=== PATIENT | female | born 1950 | race Caucasian/White ===

== ENCOUNTER 2017-08-25 01:05 | Outpatient (CLI) | payer MEDICARE | END 2017-08-25 01:06 | disposition critical access hospital (66) | LOC: EMS 01:05 | PROVIDERS: ATTEND Surgery | DX: R07.9 Chest pain, unspecified (principal); M54.9 Dorsalgia, unspecified | CPT/HCPCS: A0425; A0433 ==

== ENCOUNTER 2017-08-25 01:33 | Emergency (ER) | payer MEDICARE ==
[2017-08-25] MEDS: SODIUM CHLORIDE 0.9% 1,000 ML IV ONE (01:53)
--- NOTE | 2017-08-25 01:56 | ED Physician Documentation ---
PD HPI CHEST PAIN - Stated complaint Stated Complaint: CHEST PAIN/SOA - Chief complaint Chief Complaint: Cardiac - History obtained from History obtained from: Patient, EMS - History of Present Illness Timing - onset: Enter time (16:00), Today ((08/24/17)) Timing - onset during: Rest Timing - duration: Hours Timing - details: Gradual onset, Still present, Waxing and waning Pain level max: 10 Pain level now: 10 Quality: Pain Location: Other (back pain (denies CP and denies abdominal pain on my HPI)) Radiation: Other (no radiation) Improved by: Other (no ameliorating factors) Worsened by: Other (no exacerbating factors) Associated symptoms: Diaphoresis, Nausea, Vomiting. No: Shortness of air, General Weakness, Palpitations Similar symptoms before: Has not had sx before Recently seen: Not recently seen - Additional information Additional information: en route, EMS administered following without any improvement in symptoms: SLNTG x 2, IV morphine 5mg, IV zofran 4 mg, and fentanyl 150micrograms IV Review of Systems Constitutional: reports: Sweats. denies: Fever, Chills Eyes: reports: Reviewed and negative Ears: reports: Reviewed and negative Nose: reports: Reviewed and negative Throat: reports: Reviewed and negative Cardiac: reports: Reviewed and negative Respiratory: reports: Reviewed and negative GI: reports: Nausea, Vomiting. denies: Abdominal Pain, Constipation, Diarrhea : denies: Dysuria, Frequency, Hematuria Skin: reports: Reviewed and negative Musculoskeletal: reports: Back pain. denies: Neck pain Neurologic: reports: Reviewed and negative PD PAST MEDICAL HISTORY - Past Medical History Past Medical History: Yes Cardiovascular: Hypertension Musculoskeletal: Osteoarthritis - Past Surgical History Past Surgical History: Yes General: Cholecystectomy - Present Medications Home Medications: Ambulatory Orders Medication Instructions Recorded Confirmed Atenolol 50 mg PO DAILY 08/25/17 08/25/17 hydroCHLOROthiazide 1 tab PO DAILY 08/25/17 08/25/17 [Hydrochlorothiazide] - Allergies Allergies/Adverse Reactions: Allergies Allergy/AdvReac Type Severity Reaction Status Date / Time No Known Drug Allergies Allergy Verified 08/25/17 01:52 - Social History Does the pt smoke?: No Smoking Status: Never smoker Does the pt drink ETOH?: Yes Does the pt have substance abuse?: No - Immunizations Immunizations are current?: Yes - POLST Patient has POLST: No PD ED PE NORMAL - Vitals Vital signs reviewed: Yes - General General: Alert and oriented X 3, Well developed/nourished, Other (obvious painful distress, diaphoretic) - HEENT HEENT: PERRL, EOMI, Moist mucous membranes - Neck Neck: Supple, no meningeal sign - Cardiac Cardiac: RRR, No murmur, No gallop, No rub - Respiratory Respiratory: No respiratory distress, Clear bilaterally - Abdomen Abdomen: Soft, Non tender, Non distended - Back Back: No CVA TTP, No spinal TTP - Derm Derm: Normal color, Other (diaphoretic) - Extremities Extremities: No edema - Neuro Neuro: Alert and oriented X 3, 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, No motor deficit, No sensory deficit Eye Opening: Spontaneous Motor: Obeys Commands Verbal: Oriented GCS Score: 15 Results - Vitals Vitals: Vital Signs - 24 hr 08/25/17 08/25/17 08/25/17 01:35 02:41 03:15 Temperature 35.9 C L Heart Rate 77 85 84 Respiratory 19 21 16 Rate Blood Pressure 162/99 H 179/101 H 212/115 H Blood Pressure 141/101 H [Left] Blood Pressure 162/99 H [Right] O2 Saturation 95 94 96 08/25/17 08/25/17 08/25/17 03:48 04:10 04:31 Temperature 35.9 C L 361 C H Heart Rate 88 87 88 Respiratory 18 15 20 Rate Blood Pressure 190/115 H 195/113 H 185/86 H Blood Pressure [Left] Blood Pressure [Right] O2 Saturation 96 94 94 08/25/17 08/25/17 08/25/17 05:00 05:03 05:31 Temperature Heart Rate 78 100 Respiratory 16 23 Rate Blood Pressure 173/95 H 176/111 H Blood Pressure [Left] Blood Pressure [Right] O2 Saturation 88 L 94 97 08/25/17 08/25/17 08/25/17 06:23 07:30 08:01 Temperature 36.6 C Heart Rate 103 H 90 98 Respiratory 19 21 22 Rate Blood Pressure 186/99 H 157/116 H 145/99 H Blood Pressure [Left] Blood Pressure [Right] O2 Saturation 97 94 08/25/17 08/25/17 08/25/17 08:30 09:00 09:32 Temperature 37 C Heart Rate 95 93 Respiratory 20 18 Rate Blood Pressure 171/91 H 139/78 H Blood Pressure [Left] Blood Pressure [Right] O2 Saturation 94 95 08/25/17 08/25/17 08/25/17 09:57 10:17 10:38 Temperature Heart Rate 89 98 98 Respiratory 16 20 18 Rate Blood Pressure 148/86 H 135/87 H 135/87 H Blood Pressure [Left] Blood Pressure [Right] O2 Saturation 96 83 L 90 L Oxygen O2 Source Nasal cannula Oxygen Flow Rate 3 - EKG (time done) No standard instances Rate: Rate (enter#) (78) Rhythm: NSR [place]: Normal Intervals: Normal [place] QRS: Normal Ischemia: Normal ST segments, Q waves (V2, V3) - Labs Labs: Laboratory Tests 08/25/17 08/25/17 08/25/17 01:55 01:55 01:55 WBC 8.4 RBC 4.76 Hgb 15.0 Hct 45.1 MCV 94.8 MCH 31.6 H MCHC 33.4 RDW 14.6 Plt Count 165 MPV 8.4 Neut # (Auto) 7.0 H Lymph # (Auto) 1.0 L Bradley # (Auto) 0.3 Eos # (Auto) 0.0 Baso # (Auto) 0.0 Absolute Nucleated RBC 0.00 Nucleated RBC % 0.0 Sodium 139 Potassium 3.1 L Chloride 99 L Carbon Dioxide 27 Anion Gap 13.0 BUN 16 Creatinine 0.7 Estimated GFR (MDRD) 84 L Glucose 215 H Lactic Acid Calcium 9.7 Total Bilirubin 0.8 AST 24 ALT 20 Alkaline Phosphatase 56 Troponin I < 0.04 Total Protein 7.5 Albumin 4.2 Globulin 3.3 Albumin/Globulin Ratio 1.3 Lipase 59 H Urine Color Urine Clarity Urine pH Ur Specific [place] Urine Protein Urine Glucose (UA) Urine Ketones Urine Occult Blood Urine Nitrite Urine Bilirubin Urine Urobilinogen Ur Leukocyte Esterase Ur Microscopic Review Urine Culture Comments 08/25/17 08/25/17 08/25/17 02:37 05:44 09:15 WBC RBC Hgb Hct MCV MCH MCHC RDW Plt Count MPV Neut # (Auto) Lymph # (Auto) Bradley # (Auto) Eos # (Auto) Baso # (Auto) Absolute Nucleated RBC Nucleated RBC % Sodium Potassium Chloride Carbon Dioxide Anion Gap BUN Creatinine Estimated GFR (MDRD) Glucose Lactic Acid 3.5 H* 4.1 H* Calcium Total Bilirubin AST ALT Alkaline Phosphatase Troponin I Total Protein Albumin Globulin Albumin/Globulin Ratio Lipase Urine Color YELLOW Urine Clarity CLEAR Urine pH 7.0 Ur Specific [place] 1.020 Urine Protein NEGATIVE Urine Glucose (UA) NEGATIVE Urine Ketones 40 H Urine Occult Blood NEGATIVE Urine Nitrite NEGATIVE Urine Bilirubin NEGATIVE Urine Urobilinogen 0.2 (NORMAL) Ur Leukocyte Esterase NEGATIVE Ur Microscopic Review NOT INDICATED Urine Culture Comments NOT INDICATED - Rads (name of study) CT chest, abdomen, pelvis (IV contrast) Radiology: Prelim report reviewed, See rad report PD MEDICAL DECISION MAKING - ED course Complexity details: reviewed results, re-evaluated patient, considered differential, d/w patient ED course: Pain controlled with IV dilaudid, required repeat doses during ED stay. D/W Dr. Obrien (occupational hygienist surgery [facility]), recommends transfer to facility with thoracic surgical staff. D/W Dr. Harkins (occupational hygienist surgery [facility]), recommends I discuss case with thoracic surgery at [facility] ([place], [place]). D/W thoracic surgery fellow at [facility], recommends NGT, IV PPI, and he will D/W thoracic surgery attending and recontact [facility]. Subsequently received call from Dr. Tran (hospitalist at [facility] ([place], [place])), who had already been contacted by staff at [facility] ([place], [place]) and asked to admit patient. Dr. Tran and I discussed the case and she accepts patient for transfer to [facility]. Per transfer center, we still need to await bed assignment. [place] back from [facility] at 9:39 AM with bed assignment. - Sepsis Event Vital Signs: Vital Signs - 24 hr 08/25/17 08/25/17 08/25/17 01:35 02:41 03:15 Temperature 35.9 C L Heart Rate 77 85 84 Respiratory 19 21 16 Rate Blood Pressure 162/99 H 179/101 H 212/115 H Blood Pressure 141/101 H [Left] Blood Pressure 162/99 H [Right] O2 Saturation 95 94 96 08/25/17 08/25/17 08/25/17 03:48 04:10 04:31 Temperature 35.9 C L 361 C H Heart Rate 88 87 88 Respiratory 18 15 20 Rate Blood Pressure 190/115 H 195/113 H 185/86 H Blood Pressure [Left] Blood Pressure [Right] O2 Saturation 96 94 94 08/25/17 08/25/17 08/25/17 05:00 05:03 05:31 Temperature Heart Rate 78 100 Respiratory 16 23 Rate Blood Pressure 173/95 H 176/111 H Blood Pressure [Left] Blood Pressure [Right] O2 Saturation 88 L 94 97 08/25/17 08/25/17 08/25/17 06:23 07:30 08:01 Temperature 36.6 C Heart Rate 103 H 90 98 Respiratory 19 21 22 Rate Blood Pressure 186/99 H 157/116 H 145/99 H Blood Pressure [Left] Blood Pressure [Right] O2 Saturation 97 94 08/25/17 08/25/17 08/25/17 08:30 09:00 09:32 Temperature 37 C Heart Rate 95 93 Respiratory 20 18 Rate Blood Pressure 171/91 H 139/78 H Blood Pressure [Left] Blood Pressure [Right] O2 Saturation 94 95 08/25/17 08/25/17 08/25/17 09:57 10:17 10:38 Temperature Heart Rate 89 98 98 Respiratory 16 20 18 Rate Blood Pressure 148/86 H 135/87 H 135/87 H Blood Pressure [Left] Blood Pressure [Right] O2 Saturation 96 83 L 90 L Oxygen O2 Source Nasal cannula Oxygen Flow Rate 3 Departure - Departure Disposition: 02 Transfer Acute Care Hosp Clinical Impression: Gastric volvulus Condition: Stable Discharge Date/Time: 08/25/17 10:37
[2017-08-25 02:00] LABS: BASOPHILS % (AUTO) 0.4 %; LYMPHOCYTES % (AUTO) 11.9 %; MEAN CORPUSCULAR HEMOGLOBIN 31.6 pg (27.0-31.0); MEAN CORPUSCULAR HGB CONC 33.4 g/dL (32.0-36.0); MEAN CORPUSCULAR VOLUME 94.8 fL (81.0-99.0); MEAN PLATELET VOLUME 8.4 fL (7.9-10.8); MONOCYTES # (AUTO) 0.3 10^3/uL (0.0-1.0); MONOCYTES % (AUTO) 3.8 %; NEUTROPHILS % (AUTO) 83.9 %; PLT - PLATELET COUNT 165 10^3/uL (130-450); RED BLOOD COUNT 4.76 10^6/uL (4.20-5.40); RED CELL DISTRIBUTION WIDTH 14.6 % (12.0-15.0); WHITE BLOOD COUNT 8.4 x10^3/uL (4.8-10.8)
[2017-08-25 02:12] LABS: ALBUMIN 4.2 g/dL (3.2-5.5); ALBUMIN/GLOBULIN RATIO 1.3 (1.0-2.2); BILIRUBIN,TOTAL 0.8 mg/dL (0.2-1.0); CALCIUM 9.7 mg/dL (8.5-10.3); CREATININE 0.7 mg/dL (0.4-1.0); TOTAL PROTEIN 7.5 g/dL (6.7-8.2)
[2017-08-25] MEDS ORDERED: IOPAMIDOL-300 100 ML VIAL ONE (02:34)
[2017-08-25 02:41] LABS: BILIRUBIN,URINE NEGATIVE (NEGATIVE); GLUCOSE, URINE (UA) NEGATIVE (NEGATIVE); KETONES,URINE (UA) 40 mg/dL (NEGATIVE); LEUKOCYTE ESTERASE, URINE NEGATIVE (NEGATIVE); NITRITE,URINE NEGATIVE (NEGATIVE); OCCULT BLOOD,URINE NEGATIVE (NEGATIVE); PROTEIN,URINE NEGATIVE (NEGATIVE); UROBILINOGEN,URINE 0.2 (NORMAL) E.U./dL (NORMAL)
[2017-08-25 02:56] LABS: CLARITY,URINE CLEAR (CLEAR)
[2017-08-25] MEDS: HYDROmorphone 1 MG/ML CARPUJECT IVP STA ×3 (03:16→06:48)
[2017-08-25] MEDS: IOPAMIDOL-300 100 ML VIAL IVP ONE (03:52)
--- NOTE | 2017-08-25 04:42 | CT Report ---
Procedure Date: 08/25/2017 Accession Number: [id number] / [id number] Procedure: CT - Chest Angio (AORTA) CPT Code: FULL RESULT: EXAM: CT ANGIOGRAM CHEST, ABDOMEN AND PELVIS WITH CONTRAST EXAM DATE: 08/25/2017 03:53 AM. CLINICAL HISTORY: Severe back and epigastric pain. COMPARISONS: CHEST ANGIO (AORTA) 08/25/2017 3:35 AM. TECHNIQUE: Routine helical CT angiogram imaging was performed through the abdomen and pelvis in the arterial phase. IV contrast: ISOVUE 300 100mL. Enteric contrast: No. Reconstructions: Coronal, sagittal, and 3D MIP reconstructions. In accordance with CT protocol optimization, one or more of the following dose reduction techniques were utilized for this exam: automated exposure control, adjustment of mA and/or KV based on patient size, or use of iterative reconstructive technique. FINDINGS: Vascular Structures: No aortic intramural hematoma, dissection, or aneurysm. No significant atherosclerotic disease. Aortic branch vessels of the chest, abdomen, and pelvis are widely patent. 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 Lungs/Pleura: No pneumonia or edema. No suspicious nodules. No effusions or pneumothorax. Mediastinum: Very large complex hiatal hernia containing a distended fluid-filled very large stomach both below and above the diaphragm, worrisome for incarceration plus or minus volvulus. Minimal adjacent edema without gross wall thickening or pneumatosis. No cardiac enlargement. No adenopathy. Abdominal organs: Mildly fatty liver without suspicious abnormality seen. Post cholecystectomy. Pancreas, adrenals, right kidney, and spleen are unremarkable with the exception of a possible superior pole small splenic infarct versus heterogeneity due to phase of contrast. Left kidney has a couple of cysts but is otherwise unremarkable. Bowel/peritoneal cavity: Please see above for the stomach. Severe colonic diverticulosis without diverticulitis seen. No obstruction. No free air or fluid. Pelvic organs: Bladder, uterus, and adnexa are unremarkable with note of an IUD and a tiny pedunculated calcified fibroid. Other: None. IMPRESSION: 1. No acute aortic syndrome. 2. Very large complex hiatal hernia containing a distended fluid-filled very large stomach both below and above the diaphragm, worrisome for incarceration plus or minus volvulus. Minimal adjacent edema. 3. Extensive colonic diverticulosis. 4. Fatty liver. RADIA The above findings were discussed with Jori Sutton by Dr. Kelvin Londono at 04:40 hrs on 08/25/17.
--- NOTE | 2017-08-25 05:38 | CT Report ---
Procedure Date: 08/25/2017 Accession Number: [id number] / [id number] Procedure: CT - Pelvis Angio CPT Code: FULL RESULT: EXAM: CT ANGIOGRAM CHEST, ABDOMEN AND PELVIS WITH CONTRAST EXAM DATE: 08/25/2017 03:53 AM. CLINICAL HISTORY: Severe back and epigastric pain. COMPARISONS: CHEST ANGIO (AORTA) 08/25/2017 3:35 AM. TECHNIQUE: Routine helical CT angiogram imaging was performed through the abdomen and pelvis in the arterial phase. IV contrast: ISOVUE 300 100mL. Enteric contrast: No. Reconstructions: Coronal, sagittal, and 3D MIP reconstructions. In accordance with CT protocol optimization, one or more of the following dose reduction techniques were utilized for this exam: automated exposure control, adjustment of mA and/or KV based on patient size, or use of iterative reconstructive technique. FINDINGS: Vascular Structures: No aortic intramural hematoma, dissection, or aneurysm. No significant atherosclerotic disease. Aortic branch vessels of the chest, abdomen, and pelvis are widely patent. 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 Lungs/Pleura: No pneumonia or edema. No suspicious nodules. No effusions or pneumothorax. Mediastinum: Very large complex hiatal hernia containing a distended fluid-filled very large stomach both below and above the diaphragm, worrisome for incarceration plus or minus volvulus. Minimal adjacent edema without gross wall thickening or pneumatosis. No cardiac enlargement. No adenopathy. Abdominal organs: Mildly fatty liver without suspicious abnormality seen. Post cholecystectomy. Pancreas, adrenals, right kidney, and spleen are unremarkable with the exception of a possible superior pole small splenic infarct versus heterogeneity due to phase of contrast. Left kidney has a couple of cysts but is otherwise unremarkable. Bowel/peritoneal cavity: Please see above for the stomach. Severe colonic diverticulosis without diverticulitis seen. No obstruction. No free air or fluid. Pelvic organs: Bladder, uterus, and adnexa are unremarkable with note of an IUD and a tiny pedunculated calcified fibroid. Other: None. IMPRESSION: 1. No acute aortic syndrome. 2. Very large complex hiatal hernia containing a distended fluid-filled very large stomach both below and above the diaphragm, worrisome for incarceration plus or minus volvulus. Minimal adjacent edema. 3. Extensive colonic diverticulosis. 4. Fatty liver. 5. Post cholecystectomy. RADIA The above findings were discussed with Jori Sutton by Dr. Kelvin Londono at 04:40 hrs on 08/25/17.
[2017-08-25] MEDS: ONDANSETRON 4 MG/2 ML VIAL IVP STA (06:47)
--- NOTE | 2017-08-25 08:45 | XRAY Report ---
Procedure Date: 08/25/2017 Accession Number: [id number] / [id number] Procedure: XR - Chest 1 View X-Ray CPT Code: 31567 FULL RESULT: EXAM: CHEST RADIOGRAPHY EXAM DATE: 08/25/2017 08:29 AM. CLINICAL HISTORY: NG tube placement COMPARISON: None. TECHNIQUE: 1 view. FINDINGS: Lungs/Pleura: The lung volumes are decreased. There is a moderate left basilar pleural effusion. Potentially there may also be an air-fluid level at the left lung base and a pocket that measures at least 6.2 x 5.4 cm. Mediastinum: The heart size cannot be evaluated. Arterial calcifications indicate atherosclerosis. Other: A benign enchondroma is in the proximal right humerus. There is DISH of the thoracic spine. The endotracheal tube tip is in the distal esophagus. IMPRESSION: 1. Left pleural effusion with possible air-fluid level in a pocket. CT could be used for further evaluation. 2. Endotracheal tube tip is in distal esophagus. RADIA
[2017-08-25] MEDS: PANTOPRAZOLE 40 MG VIAL IVP STA (08:59)
[2017-08-25] MEDS: SODIUM CHLORIDE 0.9% 1,000 ML IV STA (09:14)
[2017-08-25] MEDS ORDERED: SODIUM CHLORIDE 0.9% 500 ML IV ONE (10:10)
--- NOTE | 2017-08-25 10:13 | ED Physician Documentation ---
ED Addendum - Addendum Addendum: 08/25/17 10:12 Repeat lactate came back more elevated than the first. 500 mL bolus given. Her pain is actually quite improved and she feels significantly improved after gastric decompression with the NG tube. Concern for ongoing gastric ischemia from the volvulus, [place] was recontacted and we will change her to [facility]. Patient will still be transferred to [place] for further care. This document was made in part using voice recognition software. While efforts are made to proofread this document, sound alike and grammatical errors may occur.
[2017-08-25 10:18] VITALS: BP 135/87
== END 2017-08-25 10:37 | disposition short-term general hospital (02) ==
LOC: EDUNIT# → ED 01:33 → SUPCPDRO 01:33 → ED 10:37
DX: K31.89 Other diseases of stomach and duodenum (principal); K44.9 Diaphragmatic hernia without obstruction or gangrene; K57.30 Diverticulosis of large intestine without perforation or abscess without bleeding; K76.0 Fatty (change of) liver, not elsewhere classified; I10 Essential (primary) hypertension
CPT/HCPCS: 36415; 71045; 71275; 72191; 74175; 80053; 81003; 83605; 83690; 84484; 85025; 93005; 96361; 96374; 96375; 96376; 99285; J1170; Q9967; 81001; 87086